=== PATIENT | male | born 1955 | race Caucasian/White ===

== ENCOUNTER 2022-01-09 22:38 | Emergency (ER) | payer MEDICARE, BC ==
[~2022-01-09] VITALS: Ht 177.8 cm; Wt 84.1 kg
[2022-01-09] MEDS ORDERED: METF500T13 PO (23:25)
[2022-01-10 00:41] VITALS: O2SAT 97
[2022-01-10 01:16] VITALS: BP 122/70
== END 2022-01-10 01:19 | disposition home or self-care (01) ==
LOC: M ED 22:38
DX: S06.0X1A Concussion with loss of consciousness of 30 minutes or less, initial encounter (principal); S00.81XA Abrasion of other part of head, initial encounter; W17.89XA Other fall from one level to another, initial encounter; Y92.511 Restaurant or cafe as the place of occurrence of the external cause; E78.5 Hyperlipidemia, unspecified; F17.200 Nicotine dependence, unspecified, uncomplicated; Z79.84 Long term (current) use of oral hypoglycemic drugs